=== PATIENT | female | born 1960 | race Caucasian/White ===

== ENCOUNTER 2020-06-12 00:53 | Emergency (ER) | payer BC ==
[~2020-06-12] VITALS: Ht 167.6 cm; Wt 75.7 kg
--- NOTE | 2020-06-12 01:17 | NUR ---
ED Nurse Note: pt presents to ED c/o L sided back pain x 3 hours, pt reports that it is shingles because she has a h/o shingles and the pain usually begins this way. pt states that she received the shingles vaccine 8 months ago. denies any fevers/chills at this time. upon inspection, there are no vesicles pt's back Addendum: 06/12/20 at 0121 by DARRION skin is warm dry and intact
[2020-06-12 01:20] VITALS: BP 145/84
--- NOTE | 2020-06-12 01:26 | Emergency Room Report ---
History of Present Illness General Chief Complaint: Pain Source: Patient Present Illness HPI 60-year-old female with history of left flank shingles here with left flank pain. Patient says that she feels pain of the skin on her left flank over the past 24 hours that "feels the same as my shingles that have had before." Last had shingles about 2 years ago. Says that she usually gets pain before the rash starts. Has not seen any rashes. Denies fevers, chills, chest pain, palpitation, shortness of breath, other back pain, abdominal pain, nausea, vomiting, diarrhea, dysuria, hematuria. 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 Nursing Documentation-[facility] Past Medical History: No History, Except For Review of Systems All Other Systems: negative except mentioned in HPI Physical Exam Vital Signs Date Time Temp Pulse Resp B/P (MAP) Pulse Ox O2 Delivery O2 Flow Rate FiO2 06/12/20 01:02 98.2 62 16 145/84 (104) 97 Room Air Sp02 EP Interpretation: reviewed, normal General Appearance: no apparent distress, alert, GCS 15, non-toxic Head: normocephalic, atraumatic Eyes: bilateral eye normal inspection, bilateral eye PERRL ENT: hearing grossly normal, normal pharynx, no angioedema, normal voice Neck: full range of motion, supple/symm/no masses Respiratory: chest non-tender, lungs clear, normal breath sounds, speaking full sentences Cardiovascular #1: regular rate, rhythm, no edema Cardiovascular #2: 2+ carotid (R), 2+ carotid (L), 2+ radial (R), 2+ radial (L) , 2+ dorsalis pedis (R), 2+ dorsalis pedis (L) Gastrointestinal: normal bowel sounds, non tender, soft, non-distended, no guarding, no rebound Rectal: deferred Genitourinary: normal inspection, no CVA tenderness Musculoskeletal: back normal, normal range of motion, calf tenderness, gait/ station normal, non-tender Neurologic: alert, motor strength/tone normal, oriented x3, sensory intact, responsive, speech normal Psychiatric: judgement/insight normal, memory normal, mood/affect normal, no suicidal/homicidal ideation Skin: other - Subjective pain on palpation of the skin of the left flank to the left lower quadrant of the abdomen. No rashes Lymphatic: no adenopathy Medical Decision Making Diagnostic Impression: Primary Impression: Shingles ER Course 60-year-old female here with left lower quadrant abdominal pain rating to the left flank only involving the skin. Patient says that she gets these symptoms every time she has shingles and says "this burning feels just like my shingles that I had before." She was in no obvious distress and did not have any evidence of infection or active shingles eruption but she was adamant that "I always get pain before the rash shows up." Patient normal vital signs in the emergency department. She was given a [place] with good resolution of her pain. She was given a prescription for [place], Valtrex, prednisone. Was told to avoid direct contact with other individuals until her rash is completely resolved. She expressed understanding and was discharged. Ddx: lymphadenopathy/lymphangitis, sebaceous/ganglion cyst, abscess, cellulitis , tumor, insect bite, substance abuse, folliculitis, herpes zoster Last Vital Signs Date Time Temp Pulse Resp B/P (MAP) Pulse Ox O2 Delivery O2 Flow Rate FiO2 06/12/20 01:20 98.2 87 16 145/84 97 Room Air Scripts Hydrocodone Bit/Acetaminophen 5-325* (NORCO 5-325 TABLET*) 1 Each Tablet 1 TAB ORAL Q4H PRN for For Pain, #10 TAB Prov: Janes Saba M.D. 06/12/20 Prednisone* (PREDNISONE*) 20 Mg Tablet 40 MG ORAL DAILY, #5 TAB Prov: Janes Saba M.D. 06/12/20 Valacyclovir Hcl* (VALTREX*) 500 Mg Tablet 1000 MG ORAL TWICE A DAY for 7 Days, TAB Prov: Janes Saba M.D. 06/12/20 Janes Saba M.D. Jun 12, 2020 01:26
[2020-06-12] MEDS ORDERED: HYDROcodone/Acetamin 5/325 tab ORAL ONE (01:30)
[2020-06-12] MEDS ORDERED: NORCO 5-325 TA1 EAC1 ORAL ×2 (02:18→03:30)
[2020-06-12] MEDS ORDERED: VALACYCLOVIR500 MG ORAL (02:18)
[2020-06-12] MEDS ORDERED: PREDNISONE20 MG ORAL (02:18)
[2020-06-12 02:30] VITALS: BP 145/84
--- NOTE | 2020-06-12 02:30 | NUR ---
ER DISCHARGE NOTE: Patient is cleared to be discharged per ERMD, pt is aox4, on room air, with stable vital signs. pt was given dc and prescription instructions, pt was able to verbalize understanding, pt id band removed without complications. pt is able to ambulate with steady gait. pt took all belongings.
== END 2020-06-12 02:30 | disposition home or self-care (01) ==
LOC: EMR 01:30
DX: B02.9 Zoster without complications (principal)
CPT/HCPCS: 99282